=== PATIENT | female | born 1980 | race Caucasian/White ===

== ENCOUNTER 2017-04-08 21:43 | Outpatient (CLI) | payer MEDICAID ==
[2017-04-08 22:12] LABS: APPEARANCE,URINE CLEAR; BILIRUBIN,URINE NEGATIVE (NEGATIVE); GLUCOSE, URINE NEGATIVE (NEGATIVE); KETONES,URINE NEGATIVE (NEGATIVE); LEUKOCYTE ESTERASE,URINE SMALL (NEGATIVE); NITRITE,URINE NEGATIVE (NEGATIVE); PROTEIN,URINE NEGATIVE (NEGATIVE); URINE SPECIFIC GRAVITY 1.004; UROBILINOGEN,URINE NEGATIVE mg/dL (<2.0)
[2017-04-08 22:25] LABS: URINE BARBITURATES SCREEN NEGATIVE; URINE METHADONE SCREEN NEGATIVE; URINE OPIATES LOW NEGATIVE; URINE PHENCYCLIDINE SCREEN NEGATIVE
[2017-04-08 22:27] LABS: AMNISURE (ROM) NEGATIVE (NEGATIVE)
--- NOTE | 2017-04-08 22:46 | Non Stress Test Report ---
Non Stress Test Datetime Report Generated by CPN: 04/08/2017 22:46 DEMOGRAPHIC Test Number: 1 EGA NST: 34.4 INDICATION Indication for Study: Other Indication for Study (NST) Other: labor check MONITORING Monitor Explained: Monitor Explained; Test Explained; Patient Verbalized Understanding Time on Monitor: 04/08/2017 21:58 Time off Monitor: 04/08/2017 22:44 NST Duration: 46 NST INTERVENTIONS NST Interventions: PO Hydration; Reposition Patient Physician Notified NST: Dr Merchant BABY A: [id number] BABY A Movement : Present Contraction Frequency : none FHR Baseline : 120 Accelerations : Prolonged Decelerations : None Variability : Moderate 6-25bpm NST Review: Meets Criteria for Reactive NST NST Review and Verified By : Saravanan Valencia RN NST Results: Reactive NST REPORT Report Trigger: Send Report
== END 2017-04-08 22:57 | disposition home or self-care (01) ==
LOC: LC 21:43
PROVIDERS: ATTEND Obstetrics & Gynecology
PROC: 4A1HXCZ Monitoring of Products of Conception, Cardiac Rate, External Approach (ICD-10-PCS; principal; 2017-04-08)
DX: O09.523 Supervision of elderly multigravida, third trimester (principal); Z3A.34 34 weeks gestation of pregnancy
CPT/HCPCS: 80307; 81001; 84112

== ENCOUNTER 2017-04-11 10:44 | Outpatient (CLI) | payer MEDICAID ==
--- NOTE | 2017-04-11 13:30 | Non Stress Test Report ---
Non Stress Test Datetime Report Generated by CPN: 04/11/2017 13:29 DEMOGRAPHIC EGA NST: 35.0 INDICATION Indication for Study: Ordered by Provider Indication for Study (NST) Other: Nonreactive NST in office VITAL SIGNS Temperature - NST: 98.3 Pulse - NST: 88 RESP - NST: 16 NBPSYS NST: 127 NBPDIA NST: 76 MONITORING Monitor Explained: Monitor Explained; Test Explained; Patient Verbalized Understanding Time on Monitor: 04/11/2017 10:44 Time off Monitor: 04/11/2017 11:24 NST Duration: 40 NST INTERVENTIONS NST Interventions: PO Hydration; Reposition Patient Physician Notified NST: Dr. Huffman BABY A: [id number] BABY A Movement : Present Contraction Frequency : irr FHR Baseline : 135 Accelerations : 15X15 Decelerations : None Variability : Moderate 6-25bpm NST Review: Meets Criteria for Reactive NST NST Review and Verified By : Sai Taylor RNC NST Results: Reactive NST REPORT Report Trigger: Send Report
== END 2017-04-11 12:00 | disposition home or self-care (01) ==
LOC: LC 10:44
PROVIDERS: ATTEND Obstetrics & Gynecology
PROC: 4A1HXCZ Monitoring of Products of Conception, Cardiac Rate, External Approach (ICD-10-PCS; principal; 2017-04-11)
DX: O47.03 False labor before 37 completed weeks of gestation, third trimester (principal); O09.523 Supervision of elderly multigravida, third trimester; Z3A.35 35 weeks gestation of pregnancy
CPT/HCPCS: 59025

== ENCOUNTER 2017-04-19 22:39 | Outpatient (CLI) | payer MEDICAID ==
[2017-04-19 23:12] LABS: APPEARANCE,URINE SLIGHTLY-CLOUDY; BILIRUBIN,URINE NEGATIVE (NEGATIVE); GLUCOSE, URINE 50 mg/dL (NEGATIVE); KETONES,URINE NEGATIVE (NEGATIVE); LEUKOCYTE ESTERASE,URINE TRACE (NEGATIVE); NITRITE,URINE NEGATIVE (NEGATIVE); PROTEIN,URINE NEGATIVE (NEGATIVE); URINE SPECIFIC GRAVITY 1.012; UROBILINOGEN,URINE NEGATIVE mg/dL (<2.0)
[2017-04-19 23:25] LABS: URINE BARBITURATES SCREEN NEGATIVE; URINE METHADONE SCREEN NEGATIVE; URINE OPIATES LOW NEGATIVE; URINE PHENCYCLIDINE SCREEN NEGATIVE
[2017-04-19] MEDS ORDERED: HYDROXYZINE PAMOATE 50 MG CAPSULE PO ONE (23:25)
== END 2017-04-19 23:43 | disposition home or self-care (01) ==
LOC: LC 22:39
PROVIDERS: ATTEND Obstetrics & Gynecology
PROC: 4A1HXCZ Monitoring of Products of Conception, Cardiac Rate, External Approach (ICD-10-PCS; principal; 2017-04-19)
DX: O47.03 False labor before 37 completed weeks of gestation, third trimester (principal); O09.523 Supervision of elderly multigravida, third trimester; Z3A.36 36 weeks gestation of pregnancy
CPT/HCPCS: 59025; 80307; 81001

== ENCOUNTER 2017-04-23 10:26 | Outpatient (CLI) | payer MEDICAID ==
--- NOTE | 2017-04-23 10:28 | Non Stress Test Report ---
Non Stress Test Datetime Report Generated by CPN: 04/23/2017 10:28 DEMOGRAPHIC Test Number: 1 EGA NST: 36.5 EGA NST: 36.1 INDICATION Indication for Study: Ordered by Provider Indication for Study (NST) Other: Labor check MONITORING Monitor Explained: Monitor Explained; Test Explained; Patient Verbalized Understanding Time on Monitor: 04/23/2017 10:27 Time on Monitor: 04/19/2017 22:55 Time off Monitor: 04/19/2017 23:34 NST Duration: 39 NST INTERVENTIONS NST Interventions: PO Hydration Physician Notified NST: Patricio BABY A: [id number] BABY A Movement : Present Contraction Frequency : 8-10 FHR Baseline : 125 Accelerations : 15X15 Decelerations : None Variability : Moderate 6-25bpm NST Review: Meets Criteria for Reactive NST NST Review and Verified By : TIA OSORIO Results: Reactive NST REPORT Report Trigger: Send Report
[2017-04-23] MEDS ORDERED: DIPH/PERTUSS(ACELL)/TETANUS VAC/PF 0.5 ML SYR (>=10YO) IM PRN (11:24)
[2017-04-23] MEDS ORDERED: ACETAMINOPHEN 325 MG TABLET PO PRN (11:24)
[2017-04-23] MEDS ORDERED: MEASLES,MUMPS&RUBELLA VACC/PF 0.5 ML VIAL SUBCUT PRN (11:24)
[2017-04-23] MEDS ORDERED: SIMETHICONE 80 MG TAB.CHEW PO PRN (11:24)
[2017-04-23] MEDS ORDERED: OXYCODONE-ACETAMINOPHEN 5-325 MG TABLET PO PRN ×2 (11:24)
[2017-04-23] MEDS ORDERED: OXYTOCIN/NORMAL SALINE 1,000 ML IV PRN (11:24)
[2017-04-23] MEDS ORDERED: PROMETHAZINE HCL INJ 25 MG/1 ML VIAL IV PRN (11:24)
[2017-04-23] MEDS ORDERED: HYDROMORPHONE HCL INJ/PF 2 MG/ML AMPULE IV PRN (11:26)
[2017-04-23] MEDS ORDERED: DOCUSATE SODIUM 100 MG CAPSULE PO SCH (18:00)
[2017-04-24] MEDS ORDERED: PRENATAL VITAMIN W-O CA NO5/FE FUMARATE/FA CAPSULE PO SCH (10:00)
== END 2017-04-23 10:40 | disposition home or self-care (01) ==
LOC: LC 10:26
PROVIDERS: ATTEND Obstetrics & Gynecology
PROC: 4A1HXCZ Monitoring of Products of Conception, Cardiac Rate, External Approach (ICD-10-PCS; principal; 2017-04-23)
DX: O47.03 False labor before 37 completed weeks of gestation, third trimester (principal); O09.523 Supervision of elderly multigravida, third trimester; Z3A.36 36 weeks gestation of pregnancy
CPT/HCPCS: 59025

== ENCOUNTER 2017-04-29 19:39 | Outpatient (CLI) | payer MEDICAID ==
[2017-04-29 20:24] LABS: APPEARANCE,URINE CLEAR; BILIRUBIN,URINE NEGATIVE (NEGATIVE); GLUCOSE, URINE NEGATIVE (NEGATIVE); KETONES,URINE NEGATIVE (NEGATIVE); LEUKOCYTE ESTERASE,URINE NEGATIVE (NEGATIVE); NITRITE,URINE NEGATIVE (NEGATIVE); PROTEIN,URINE NEGATIVE (NEGATIVE); URINE SPECIFIC GRAVITY 1.005; UROBILINOGEN,URINE NEGATIVE mg/dL (<2.0)
[2017-04-29 20:40] LABS: URINE BARBITURATES SCREEN NEGATIVE; URINE METHADONE SCREEN NEGATIVE; URINE OPIATES LOW NEGATIVE; URINE PHENCYCLIDINE SCREEN NEGATIVE
--- NOTE | 2017-04-29 21:34 | Non Stress Test Report ---
Non Stress Test Datetime Report Generated by CPN: 04/29/2017 21:34 DEMOGRAPHIC EGA NST: 37.4 INDICATION Indication for Study: Ordered by Provider MONITORING Monitor Explained: Monitor Explained Time on Monitor: 04/29/2017 19:57 Time off Monitor: 04/29/2017 21:09 NST Duration: 72 NST INTERVENTIONS NST Interventions: None BABY A: [id number] BABY A Contraction Frequency : 5-7 FHR Baseline : 135 Accelerations : 15X15 Decelerations : None Variability : Moderate 6-25bpm NST Review and Verified By : R García, RNC NST Results: Reactive NST REPORT Report Trigger: Send Report
== END 2017-04-29 21:22 | disposition admitted as inpatient to this hospital (09) ==
LOC: LC 19:39
PROVIDERS: ATTEND Obstetrics & Gynecology
PROC: 4A1HXCZ Monitoring of Products of Conception, Cardiac Rate, External Approach (ICD-10-PCS; principal; 2017-04-29)
DX: O47.1 False labor at or after 37 completed weeks of gestation (principal); O09.523 Supervision of elderly multigravida, third trimester; Z3A.37 37 weeks gestation of pregnancy
CPT/HCPCS: 59025; 81005; 80307; Q0114

== ENCOUNTER 2017-05-05 21:01 | Outpatient (CLI) | payer MEDICAID ==
[2017-05-05 21:55] LABS: APPEARANCE,URINE CLEAR; BILIRUBIN,URINE NEGATIVE (NEGATIVE); GLUCOSE, URINE NEGATIVE (NEGATIVE); KETONES,URINE NEGATIVE (NEGATIVE); LEUKOCYTE ESTERASE,URINE SMALL (NEGATIVE); NITRITE,URINE NEGATIVE (NEGATIVE); PROTEIN,URINE NEGATIVE (NEGATIVE); URINE SPECIFIC GRAVITY 1.005; UROBILINOGEN,URINE NEGATIVE mg/dL (<2.0)
[2017-05-05 22:00] LABS: AMNISURE (ROM) NEGATIVE (NEGATIVE)
--- NOTE | 2017-05-05 22:10 | Non Stress Test Report ---
Non Stress Test Datetime Report Generated by CPN: 05/05/2017 22:10 DEMOGRAPHIC Test Number: 1 EGA NST: 38.3 INDICATION Indication for Study: Ordered by Provider Indication for Study (NST) Other: LC MONITORING Monitor Explained: Monitor Explained; Test Explained; Patient Verbalized Understanding Time on Monitor: 05/05/2017 21:20 Time off Monitor: 05/05/2017 22:03 NST Duration: 43 NST INTERVENTIONS NST Interventions: PO Hydration Physician Notified NST: Handy BABY A: [id number] BABY A Movement : Present Contraction Frequency : 3-5 FHR Baseline : 150 Accelerations : 15X15 Decelerations : None Variability : Moderate 6-25bpm NST Review: Meets Criteria for Reactive NST NST Review and Verified By : Saravanan Valencia RN NST Results: Reactive NST REPORT Report Trigger: Send Report
[2017-05-05 22:17] LABS: URINE BARBITURATES SCREEN NEGATIVE; URINE METHADONE SCREEN NEGATIVE; URINE OPIATES LOW NEGATIVE; URINE PHENCYCLIDINE SCREEN NEGATIVE
== END 2017-05-05 22:23 | disposition home or self-care (01) ==
LOC: LC 21:01
PROVIDERS: ATTEND Student in an Organized Health Care Education/Training Program
PROC: 4A1HXCZ Monitoring of Products of Conception, Cardiac Rate, External Approach (ICD-10-PCS; principal; 2017-05-05)
DX: O47.1 False labor at or after 37 completed weeks of gestation (principal); O09.523 Supervision of elderly multigravida, third trimester; Z3A.38 38 weeks gestation of pregnancy
CPT/HCPCS: 59025; 80307; 81005; 84112

== ENCOUNTER 2017-05-07 22:18 | Outpatient (CLI) | payer MEDICAID ==
[2017-05-07 22:58] LABS: APPEARANCE,URINE SLIGHTLY-CLOUDY; BILIRUBIN,URINE NEGATIVE (NEGATIVE); GLUCOSE, URINE NEGATIVE (NEGATIVE); KETONES,URINE NEGATIVE (NEGATIVE); LEUKOCYTE ESTERASE,URINE LARGE (NEGATIVE); NITRITE,URINE NEGATIVE (NEGATIVE); PROTEIN,URINE NEGATIVE (NEGATIVE); URINE SPECIFIC GRAVITY 1.013; UROBILINOGEN,URINE NEGATIVE mg/dL (<2.0)
[2017-05-07 23:04] LABS: AMNISURE (ROM) NEGATIVE (NEGATIVE)
[2017-05-07 23:14] LABS: URINE BARBITURATES SCREEN NEGATIVE; URINE METHADONE SCREEN NEGATIVE; URINE OPIATES LOW NEGATIVE; URINE PHENCYCLIDINE SCREEN NEGATIVE
--- NOTE | 2017-05-07 23:48 | Non Stress Test Report ---
Non Stress Test Datetime Report Generated by CPN: 05/07/2017 23:47 DEMOGRAPHIC EGA NST: 38.5 INDICATION Indication for Study: Ordered by Provider; Other Indication for Study (NST) Other: LC URINE RESULTS Urine Protein, NST: Negative Urine Ketones - NST: Negative Urine Glucose - NST: Negative Urine Blood - NST: Negative MONITORING Monitor Explained: Monitor Explained; Test Explained; Patient Verbalized Understanding Time on Monitor: 05/07/2017 22:44 Time off Monitor: 05/07/2017 23:24 NST Duration: 40 NST INTERVENTIONS NST Interventions: PO Hydration; Reposition Patient Physician Notified NST: Dr Neilsen BABY A: [id number] BABY A Contraction Frequency : 8 FHR Baseline : 150 Accelerations : 15X15 Decelerations : None Variability : Moderate 6-25bpm NST Review: Meets Criteria for Reactive NST NST Review and Verified By : Scooby Koehler, RNC NST Results: Reactive NST REPORT Report Trigger: Send Report
== END 2017-05-07 23:28 | disposition home or self-care (01) ==
LOC: LC 22:18
PROVIDERS: ATTEND Specialist
PROC: 4A1HXCZ Monitoring of Products of Conception, Cardiac Rate, External Approach (ICD-10-PCS; principal; 2017-05-07)
DX: O47.1 False labor at or after 37 completed weeks of gestation (principal); Z3A.38 38 weeks gestation of pregnancy
CPT/HCPCS: 59025; 80307; 81005; 84112

== ENCOUNTER 2017-05-09 07:49 | Inpatient (IN) | payer MEDICAID ==
[2017-05-09 08:20] LABS: APPEARANCE,URINE CLEAR; BILIRUBIN,URINE NEGATIVE (NEGATIVE); GLUCOSE, URINE NEGATIVE (NEGATIVE); KETONES,URINE NEGATIVE (NEGATIVE); LEUKOCYTE ESTERASE,URINE TRACE (NEGATIVE); NITRITE,URINE NEGATIVE (NEGATIVE); PROTEIN,URINE NEGATIVE (NEGATIVE); URINE SPECIFIC GRAVITY 1.006; UROBILINOGEN,URINE NEGATIVE mg/dL (<2.0)
[2017-05-09 08:43] LABS: URINE BARBITURATES SCREEN NEGATIVE; URINE METHADONE SCREEN NEGATIVE; URINE OPIATES LOW NEGATIVE; URINE PHENCYCLIDINE SCREEN NEGATIVE
[2017-05-09] MEDS ORDERED: MISOPROSTOL 0.2 MG TABLET ONE (11:53)
[2017-05-09] MEDS ORDERED: CEFAZOLIN 2 GM/D5W RTU 2 GM/50 ML RTUPB IV ONE ×2 (11:53→19:57)
[2017-05-09] MEDS ORDERED: LIDOCAINE 1% INJ-PF (10 MG/ML) 30 ML SDV ONE (11:53)
[2017-05-09] MEDS ORDERED: OXYTOCIN/NORMAL SALINE 20 UNIT/1,000 ML RTUINJ ONE (11:53)
[2017-05-09 13:28] LABS: ABSOLUTE EOSINOPHILS # (AUTO) 0.1 10^3/uL (0.0-0.6); ABSOLUTE LYMPHOCYTES (AUTO) 1.6 10^3/uL (0.5-4.7); ABSOLUTE MONOCYTES (AUTO) 1.1 10^3/uL (0.1-1.4); ABSOLUTE NEUT (AUTO) 9.8 10^3/uL (1.7-8.2); BASOPHILS % (AUTO) 0.4 % (0-2); EOSINOPHILS % (AUTO) 0.6 % (0-6); HEMATOCRIT 36.2 % (36.0-47.0); HEMOGLOBIN 11.3 g/dL (12.0-15.5); HGB HCT DIFFERENCE -2.3; LYMPHOCYTES % (AUTO) 12.8 % (13-45); MEAN CORPUSCULAR HEMOGLOBIN 25.2 pg (27.0-33.4); MEAN CORPUSCULAR HGB CONC 31.3 g/dL (32.0-36.0); MEAN CORPUSCULAR VOLUME 80 fl (80-97); RED CELL DISTRIBUTION WIDTH 17.7 % (11.5-14.0); SEGMENTED NEUTROPHILS % (AUTO) 77.2 % (42-78); WHITE BLOOD COUNT 12.7 10^3/uL (4.0-10.5)
[2017-05-09] MEDS ORDERED: CEFAZOLIN 2 GM/D5W RTU 2 GM/50 ML RTUPB IV SCH (18:00)
--- NOTE | 2017-05-09 20:33 | L&D Progress Notes ---
PROGRESS NOTES Datetime Report Generated by CPN: 05/09/2017 20:33 PROGRESS NOTE Impression Other: protracted latent labor Procedures: Artificial ROM Comment: cont gbs prophylaxis, consider pit augmentation if does not make cervical change with arom VAGINAL EXAM Dilatation: 4 Effacement: 80 Station: -1 MEMBRANES Amniotic Fluid Color: Clear FETUS A FHR Category: Category I : 39.0 Presentation: Vertex SIGNATURE SIGNATURE: [id number] SIGNATURE: [id number] SIGNATURE: [id number] SIGNATURE: [id number] SIGNATURE: [id number] SIGNATURE: [id number] SIGNATURE: [id number] Signature: with User ID: [email or web address]
[2017-05-09] MEDS ORDERED: ACETAMINOPHEN 325 MG TABLET ONE (21:16)
[2017-05-09] MEDS ORDERED: DIBUCAINE 1% OINTMENT 28 GM TP PRN (22:10)
[2017-05-09] MEDS ORDERED: BENZOCAINE/MENTHOL AEROSOL SPRAY 56 ML TOP PRN (22:10)
[2017-05-09] MEDS ORDERED: OXYTOCIN/NORMAL SALINE 1,000 ML IV PRN (22:10)
[2017-05-09] MEDS ORDERED: ACETAMINOPHEN WITH CODEINE #3 TABLET PO PRN ×2 (22:10)
[2017-05-09] MEDS ORDERED: DIPH/PERTUSS(ACELL)/TETANUS VAC/PF 0.5 ML SYR (>=10YO) IM PRN (22:10)
[2017-05-09] MEDS ORDERED: MEASLES,MUMPS&RUBELLA VACC/PF 0.5 ML VIAL SUBCUT PRN (22:10)
[2017-05-09] MEDS ORDERED: ZOLPIDEM TARTRATE 5 MG TABLET PO PRN (22:10)
[2017-05-09] MEDS ORDERED: PROMETHAZINE HCL 25 MG TABLET PO PRN (23:46)
[2017-05-09] MEDS ORDERED: ACETAMINOPHEN 650 MG SUPP.RECT PR PRN (23:46)
[2017-05-09] MEDS ORDERED: DIPHENHYDRAMINE HCL 25 MG CAPSULE PO PRN (23:46)
[2017-05-09] MEDS ORDERED: PSEUDOEPHEDRINE HCL 30 MG TABLET PO PRN (23:46)
[2017-05-09] MEDS ORDERED: GLYCERIN/WITCH HAZEL LEAF 1 EACH MED..PAD TP PRN (23:46)
[2017-05-09] MEDS ORDERED: NA PHOS,M-B/NA PHOS,DI-BA (ADULT) 133 ML ENEMA PR PRN (23:46)
[2017-05-09] MEDS ORDERED: PROMETHAZINE HCL INJ 25 MG/1 ML VIAL IV PRN (23:46)
[2017-05-09] MEDS ORDERED: MAGNESIUM HYDROXIDE SUSP 30 ML UDCUP PO PRN (23:46)
[2017-05-09] MEDS ORDERED: PROMETHAZINE HCL 25 MG SUPP.RECT PR PRN (23:46)
--- NOTE | 2017-05-10 01:18 | Admission Physical ---
Datetime Report Generated by CPN: 05/10/2017 01:18 CURRENT ADMISSION Chief Complaint: Uterine Contractions Admit Plan: Admit to Unit; Initiate Labor Protocol ALLERGIES Medication Allergies: Yes Medication Allergies: Penicillins/MO/Hives (05/09/2017); amoxicillin/MO/Hives (05/09/2017) Medication Allergies: Penicillins/MO/Hives (05/07/2017); amoxicillin/MO/Hives (05/07/2017) Medication Allergies: Penicillins/MO/Hives (05/05/2017); amoxicillin/MO/Hives (05/05/2017) Medication Allergies: Penicillins/MO/Hives (04/29/2017); amoxicillin/MO/Hives (04/29/2017) Medication Allergies: Penicillins/MO/Hives (04/23/2017); amoxicillin/MO/Hives (04/23/2017) Medication Allergies: Penicillins/MO/Hives (07/07/2013); amoxicillin/MO/Hives (07/07/2013) Medication Allergies: Penicillins/MO/Hives (07/07/2013); amoxicillin/MO/Hives (07/07/2013) almonds, black pepper, shellfish. Latex: No Latex Allergies Food Allergies: black pepper almonds shellfish Environmental Allergies: none OBSTETRICAL HISTORY EDC: 05/16/2017 00:00 : 9 Para: 2 Term: 1 : 1 Livin Gestational Diabetes: No Rh Sensitization: No Incompetent Cervix: No NIRANJAN: No Infertility: No ART Treatment: No Uterine Anomaly: No IUGR: No Hx Previous C/S: No Macrosomia: No Hx Loss/Stillborn: No PIH: No Hx : No Placenta Previa/Abruption: No Depression/PP Depression: No PTL/PROM: No Post Hemorrhage: No Current Procedures: Ultrasound; NST Obstetrical History Comments: 1st 2007- 40wks vaginal 2 amniotic sacs 2nd preg 2006- ectopic at 5 wks 3rd preg 2012- SAB 8-9 wks 4th preg 2012- SAB 7-9 wks 5th preg 2012- SAB 8wks 6th preg 2013- SAB 8-9 wks 7th preg 2013- SAB 8-9 wks 8th preg 2015- vaginal delivery at 36wks post hemorrage 9th preg 2017- current SEE RECORDS Alcohol: No Marijuana : No Cocaine: No Other Illicit Drugs: No Cigarettes: Never Smoker. [id number] MEDICAL HISTORY Diabetes: No Blood Transfusion: No Pulmonary Disease (Asthma, TB): No Breast Disease: No Hypertension: No [place] Surgery: No Heart Disease: No Hosp/Surgery: No Autoimmune Disorder: No Anesthetic Complications: No Kidney Disease: No Abnormal Pap Smear: No Neuro/Epilepsy: No Psychiatric Disorders: No Other Medical Diseases: No Hepatitis/Liver Disease: No Significant Family History: No Varicosities/Phlebitis: No Trauma/Violence : No Thyroid Dysfunction: No INFECTIOUS HISTORY Gonorrhea: No Genital Herpes: No Chlamydia: No Tuberculosis: No Syphilis: No Hepatitis: No HIV/AIDS Exposure: No Rash or Viral Illness: No HPV: No PHYSICAL EXAM General: Normal HEENT: Normal Neurologic: Normal Thyroid: Normal Heart: Normal Lungs: Normal Breast: Normal Back: Normal Abdomen: Normal Genitourinary Exam: Normal Extremities: Normal DTRs: Normal Pelvic Type: Adequate Vital Signs: Reviewed VAGINAL EXAM Dilatation: 4 Effacement: 80 Station: -1 MEMBRANES Amniotic Fluid Color: Clear FETUS A EGA: 39.0 Monitoring: External US Decelerations: None Presentation: Vertex Admit Comment: 37 yo presents with uncomfortable and increased contractions pt walked for 2 hours- small cervical change noted GBS positive with sensitivity to Penicillin- NKDA admitted for early labor EDC per LMP 05/16/17 EGA 39 weeks AMA multiple SABs Anemia RH negative retained placenta- history of PPH Positive GBS gbs prophylaxis with Ancef pain management prn anticipate PLANS FOR LABOR AND DELIVERY Labor and Delivery: None Pain Management: None; Natural Feeding Preference: Breast Benefit of Breast Feed Discussed: Yes Circumcision: N/A INFORMED CONSENT Assignment: Gabriella Brandt MD Signature: with User ID: Teresa : with User ID: Teresa
[2017-05-10] MEDS: IBUPROFEN 800 MG TABLET PO SCH ×3 (05:41→22:00)
[2017-05-10 07:44] LABS: HEMATOCRIT 33.9 % (36.0-47.0); HEMOGLOBIN 10.9 g/dL (12.0-15.5); HGB HCT DIFFERENCE -1.2; MEAN CORPUSCULAR HEMOGLOBIN 25.4 pg (27.0-33.4); MEAN CORPUSCULAR HGB CONC 32.2 g/dL (32.0-36.0); MEAN CORPUSCULAR VOLUME 79 fl (80-97); RED BLOOD COUNT 4.29 10^6/uL (3.72-5.28); RED CELL DISTRIBUTION WIDTH 17.5 % (11.5-14.0); WHITE BLOOD COUNT 17.3 10^3/uL (4.0-10.5)
--- NOTE | 2017-05-10 10:20 | PDOC PROGRESS REPORT ---
Subjective-OB Subjective: Post Delivery Day: 37 year old. Denies any needs at this time Doing well, OOB in halls, voiding, eating well, family at BS, breast feeding Physical Exam (OB) Vital Signs: Temp Pulse Resp BP Pulse Ox 98.6 F 83 16 125/75 100 05/10/17 08:30 05/10/17 08:30 05/10/17 08:30 05/10/17 08:30 05/10/17 08:30 Intake & Output 05/09/17 05/10/17 05/11/17 06:59 06:59 06:59 Weight 90.95 kg - Lochia Lochia Amount: Small 10-25 ml Lochia Color: Rubra/Red - Abdomen Description: Soft Hernia Present: No Fundal Description: Firm, Midline Fundal Height: u/u - u/2 Objective-Diagnostic Laboratory: 05/10/17 07:19 05/09/17 05/09/17 05/10/17 13:03 13:03 07:19 WBC 12.7 H 17.3 H RBC 4.50 4.29 Hgb 11.3 L 10.9 L Hct 36.2 33.9 L MCV 80 79 L MCH 25.2 L 25.4 L MCHC 31.3 L 32.2 RDW 17.7 H 17.5 H Plt Count 228 239 Seg Neutrophils % 77.2 Lymphocytes % 12.8 L Monocytes % 9.0 Eosinophils % 0.6 Basophils % 0.4 Absolute Neutrophils 9.8 H Absolute Lymphocytes 1.6 Absolute Monocytes 1.1 Absolute Eosinophils 0.1 Absolute Basophils 0.0 Blood Type A POSITIVE Antibody Screen NEGATIVE Assessment and Plan(PN) - Assessment and Plan (1) Qualifiers: Weeks of gestation: 40 weeks Qualified Code(s): Z3A.40 - 40 weeks gestation of Is this a current diagnosis for this admission?: Yes (2) Vaginal delivery Is this a current diagnosis for this admission?: Yes - Time Spent with Patient Time with patient: Less than 15 minutes Medications reviewed and adjusted accordingly: Yes - Disposition Anticipated Discharge: Home Within: within 24 hours
[2017-05-10] MEDS: DOCUSATE SODIUM 100 MG CAPSULE PO SCH ×2 (10:40→17:29)
[2017-05-10] MEDS: PRENATAL VITAMIN W-O CA NO5/FE FUMARATE/FA CAPSULE PO SCH (10:42)
[2017-05-10] MEDS: FERROUS SULFATE 325 MG TABLET PO SCH ×2 (10:42→17:29)
[2017-05-10] MEDS: SENNOSIDES/DOCUSATE 8.6-50 MG 1 EACH TABLET PO SCH (10:43)
[2017-05-10] MEDS: FAMOTIDINE 20 MG TABLET PO SCH ×2 (10:44→22:00)
[2017-05-10 11:20] LABS: HEMATOCRIT 35.7 % (36.0-47.0); HEMOGLOBIN 11.4 g/dL (12.0-15.5); HGB HCT DIFFERENCE -1.5; MEAN CORPUSCULAR HEMOGLOBIN 25.3 pg (27.0-33.4); MEAN CORPUSCULAR HGB CONC 31.9 g/dL (32.0-36.0); MEAN CORPUSCULAR VOLUME 80 fl (80-97); RED BLOOD COUNT 4.49 10^6/uL (3.72-5.28); RED CELL DISTRIBUTION WIDTH 17.3 % (11.5-14.0); WHITE BLOOD COUNT 16.9 10^3/uL (4.0-10.5)
[2017-05-10 21:08] VITALS: BP 126/77
[2017-05-11] MEDS: IBUPROFEN 800 MG TABLET PO SCH (05:32)
--- NOTE | 2017-05-11 09:49 | PDOC PROGRESS REPORT ---
Subjective-OB Subjective: Post Delivery Day: 37 year old. Denies any needs at this time Doing well, ready to go home, voiding, walking in halls, epigastric soreness, Physical Exam (OB) Vital Signs: Temp Pulse Resp BP Pulse Ox 98.8 F 81 16 126/77 H 99 05/10/17 20:26 05/10/17 20:26 05/10/17 20:26 05/10/17 20:26 05/10/17 20:26 Intake & Output 05/10/17 05/11/17 05/12/17 06:59 06:59 06:59 Intake Total 425 Balance 425 Weight 90.95 kg - Lochia Lochia Amount: Scant < 10 ml Lochia Color: Rubra/Red - Abdomen Description: Tender, Soft, Round Hernia Present: No Fundal Description: Firm, Midline Fundal Height: u/u - u/2 Objective-Diagnostic Laboratory: 05/10/17 11:00 05/10/17 11:00 WBC 16.9 H RBC 4.49 Hgb 11.4 L Hct 35.7 L MCV 80 MCH 25.3 L MCHC 31.9 L RDW 17.3 H Plt Count 239 Assessment and Plan(PN) - Assessment and Plan (1) Qualifiers: Weeks of gestation: 39 weeks Qualified Code(s): Z3A.39 - 39 weeks gestation of Is this a current diagnosis for this admission?: Yes (2) Vaginal delivery Is this a current diagnosis for this admission?: Yes - Time Spent with Patient Time with patient: Less than 15 minutes Medications reviewed and adjusted accordingly: Yes - Disposition Anticipated Discharge: Home Within: Other - home today
--- NOTE | 2017-05-11 09:53 | PDOC DISCHARGE SUMMARY ---
Final Diagnosis Discharge Date: 05/11/17 - Final Diagnosis (1) Is this a current diagnosis for this admission?: Yes (2) Vaginal delivery Is this a current diagnosis for this admission?: Yes Discharge Data - Discharge Medication Home Medications: Zya067/Iron Fumarate/FA/Dss [ 19 Tablet] 1 tab PO DAILY 12/08/14 Ferrous Sulfate [Feosol 325 mg Tablet] 325 mg PO BID #30 tablet 01/24/15 Ergocalciferol (Vitamin D2) [Vitamin D] 400 unit PO DAILY 05/05/17 Folic Acid [Folvite 1 mg Tablet] 1 mg PO DAILY 05/05/17 Ibuprofen [Motrin 800 mg Tablet] 800 mg PO Q8 #60 tablet 05/11/17 Gestational Age: 39 Reason(s) for Admission: Onset of Labor, Group B Strep Positive Admission Note: AROM Procedures: Ultrasound Intrapartum Procedure(s): Spontaneous Vaginal Delivery - [place] Data Baby 1 Female at 1 minute: 9 at 5 minutes: 9 Weight: 3.969 kg Home with Mother: Yes Complications: No - Diagnosis Test Laboratory: Temp Pulse Resp BP Pulse Ox 98.8 F 81 16 126/77 H 99 05/10/17 20:26 05/10/17 20:26 05/10/17 20:26 05/10/17 20:26 05/10/17 20:26 05/09/17 05/09/17 05/10/17 08:00 13:03 07:19 RBC 4.50 4.29 Hgb 11.3 L 10.9 L Hct 36.2 33.9 L Urine Opiates Screen NEGATIVE 05/10/17 11:00 RBC 4.49 Hgb 11.4 L Hct 35.7 L Urine Opiates Screen - Discharge information/Instructions Discharge Activity: Activity As Tolerated, No Lifting Over 10 Pounds, No Lifting /Push/Pulling, Pelvic Rest Discharge Diet: As Tolerated Disposition: HOME, SELF-CARE Follow up with: [facility] in: 4, Weeks
[2017-05-11] MEDS: DOCUSATE SODIUM 100 MG CAPSULE PO SCH (10:09)
[2017-05-11] MEDS: FERROUS SULFATE 325 MG TABLET PO SCH (10:09)
[2017-05-11] MEDS: PRENATAL VITAMIN W-O CA NO5/FE FUMARATE/FA CAPSULE PO SCH (10:09)
[2017-05-11] MEDS: SENNOSIDES/DOCUSATE 8.6-50 MG 1 EACH TABLET PO SCH (10:09)
[2017-05-11] MEDS: FAMOTIDINE 20 MG TABLET PO SCH (10:11)
--- NOTE | 2017-05-12 15:22 | Delivery Summary ---
Del Sum A-C Datetime Report Generated by CPN: 05/12/2017 15:22 DELIVERY PERSONNEL DELIVERY PERSONNEL: [phone];[id number];[id number] DELIVERY PERSONNEL: [id number];[id number] DELIVERY PERSONNEL: [phone] DELIVERY PERSONNEL: [id number] DELIVERY PERSONNEL: [phone] DELIVERY PERSONNEL: [phone] DELIVERY PERSONNEL: [id number] DELIVERY PERSONNEL: [phone] Delivery Doctor:: Gabriella Brandt MD Labor and Delivery Nurse:: Natalia Barrios RNrubber curer Nurse:: Reanna Ruiz RN Nursery Nurse:: Gabriella Dee RN Forestry And Wildlife Manager/PUBLIC RELATIONS COUNSELOR: Shweta Antonio, ST MATERNAL INFORMATION Delivery Anesthesia: None Medications After Delivery: Pitocin Bolus-Please Comment; Pitocin Drip 20 Units/1000ml NSS Estimated Blood Loss (ml): 250 Maternal Complications: None Provider Comments: Pt progressed to over intact perineum of female infant with apgars of 9 and 9. Head deliverd OA. Shoulders and body delivered easily thereafter. 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 Cord clamped and cut. Placenta spont and intact. Mom and baby doing well. LABOR SUMMARY EDC: 05/16/2017 00:00 No. Babies in Womb: 1 Attempted: No Labor Anesthesia: None LABOR INFORMATION Reason for Induction: Not Applicable Onset of Labor: 05/09/2017 20:59 Complete Dilatation: 05/09/2017 21:36 Group B Beta Strep: Positive Antibiotics # of Doses: 2 Antibiotics Time of Last Dose: 2035 Name of Antibiotic Given: ancef Steroids Given: None Reason Steroids Not Administered: Not Applicable MEMBRANES Membranes Rupture Method: Artificial Rupture of Membranes: 05/09/2017 20:22 Length of Rupture (hr): 1.52 Amniotic Fluid Color: Clear Amniotic Fluid Amount: Scant Amniotic Fluid Odor: None STAGES OF LABOR Stage 1 hr: 0 Stage 1 min: 37 Stage 2 hr: 0 Stage 2 min: 17 Stage 3 hr: 0 Stage 3 min: 4 Total Time in Labor hr: 0 Total Time in Labor min: 58 VAGINAL DELIVERY Episiotomy: None Laceration Type: None BABY A INFORMATION Delivery Date/Time: 05/09/2017 21:53 Method of Delivery: Vaginal Method of Delivery: Vaginal Method of Delivery: Vaginal Born in Route : No : N/A Forceps: N/A Vacuum Extraction: N/A Shoulder Dystocia : No PRESENTATION/POSITION BABY A Presentation: Cephalic Presentation: Cephalic Presentation: Unable to Assess Cephalic Presentation: Vertex Vertex Position: OA Breech Presentation: N/A PLACENTA INFORMATION BABY A Placenta Delivery Time : 05/09/2017 21:57 Placenta Method of Delivery: Spontaneous Placenta Method of Delivery: Spontaneous Placenta Status: Delivered SCORES BABY A Heart Rate 1 min: >100 bpm Resp Effort 1 min: Good Cry Reflex Irritability 1 min: Cough or Sneeze or Pulls Away Muscle Tone 1 min: Active Motion Color 1 min: Body Shallow Water, Extremities Blue SCORE 1 MIN: 9 Heart Rate 5 min: >100 bpm Resp Effort 5 min: Good Cry Reflex Irritability 5 min: Cough or Sneeze or Pulls Away Muscle Tone 5 min: Active Motion Color 5 min: Body Shallow Water, Extremities Blue SCORE 5 MIN: 9 INFORMATION BABY A Gestational Age at Delivery: 39.0 Gestational Status: Full Term- 39- 40.6 Weeks Outcome : Liveborn Infant Condition : Stable Infant Sex: Female Sex: Female IDENTIFICATION BABY A Infant Verification Date/Time: 05/09/2017 22:03 ID Band Number: [id number] Mother's Name Verified: Yes Infant RN Verifying Infant: B Denis, RN Additional Verifying Personnel: B Ring, RN WEIGHT/LENGTH BABY A Infant Birthweight (gm): 3960 Infant Birthweight (gm): 3960 Infant Weight (lb): 8 Infant Weight (oz): 12 Length (in): 19.50 Length (in): 19.50 Infant Length (cm): 49.53 CORD INFORMATION BABY A No. Cord Vessels: 3 Nuchal Cord : N/A Cord Blood Taken: Yes-For Storage (Mom's Blood type +) Infant Suction: Mouth; Nose ASSESSMENT BABY A Skin to Skin: Yes Skin to Skin Time (min): 40 Infant Care By: Francisco Luiz, RN SIGNATURES Signature: with User ID: [email or web address]
== END 2017-05-11 12:22 | disposition home or self-care (01) | DRG 775 ==
LOC: LC 07:49 → LR 11:33 → 2S 05-10 00:15
PROVIDERS: ADMIT Specialist; ATTEND Specialist
PROC: 10E0XZZ Delivery of Products of Conception, External Approach (ICD-10-PCS; principal; 2017-05-09)
PROC: 10907ZC Drainage of Amniotic Fluid, Therapeutic from Products of Conception, Via Natural or Artificial Opening (ICD-10-PCS; 2017-05-09)
PROC: 4A1HXCZ Monitoring of Products of Conception, Cardiac Rate, External Approach (ICD-10-PCS; 2017-05-09)
DX: O99.824 Streptococcus B carrier state complicating childbirth (principal); O63.0 Prolonged first stage (of labor); O99.02 Anemia complicating childbirth; D64.9 Anemia, unspecified; Z28.21 Immunization not carried out because of patient refusal; Z88.0 Allergy status to penicillin; Z91.018 Allergy to other foods; Z91.013 Allergy to seafood; Z3A.39 39 weeks gestation of pregnancy; Z37.0 Single live birth
CPT/HCPCS: 36415; 80307; 81005; 85025; 85027; 86592; 86850; 86900; 86901; 94760; J0690; J2590; J3490

== ENCOUNTER 2017-08-13 21:26 | Emergency (ER) | payer MEDICAID ==
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
[2017-08-14 02:27] LABS: ABSOLUTE BASOPHILS # (AUTO) 0.1 10^3/uL (0.0-0.2); ABSOLUTE EOSINOPHILS # (AUTO) 0.2 10^3/uL (0.0-0.6); ABSOLUTE LYMPHOCYTES (AUTO) 2.1 10^3/uL (0.5-4.7); ABSOLUTE MONOCYTES (AUTO) 0.8 10^3/uL (0.1-1.4); ABSOLUTE NEUT (AUTO) 4.4 10^3/uL (1.7-8.2); BASOPHILS % (AUTO) 0.7 % (0-2); EOSINOPHILS % (AUTO) 2.2 % (0-6); HEMATOCRIT 39.3 % (36.0-47.0); HEMOGLOBIN 13.4 g/dL (12.0-15.5); HGB HCT DIFFERENCE 0.9; LYMPHOCYTES % (AUTO) 27.6 % (13-45); MEAN CORPUSCULAR HEMOGLOBIN 27.8 pg (27.0-33.4); MEAN CORPUSCULAR VOLUME 82 fl (80-97); MONOCYTES % (AUTO) 10.6 % (3-13); RED CELL DISTRIBUTION WIDTH 14.7 % (11.5-14.0); SEGMENTED NEUTROPHILS % (AUTO) 58.9 % (42-78); WHITE BLOOD COUNT 7.5 10^3/uL (4.0-10.5)
[2017-08-14 02:37] LABS: ALANINE AMINOTRANSFERASE 24 U/L (9-52); ALBUMIN 4.1 g/dL (3.5-5.0); ALKALINE PHOSPHATASE 81 U/L (38-126); ANION GAP 8 (5-19); ASPARTATE AMINO TRANSFERASE 24 U/L (14-36); BILIRUBIN,DIRECT 0.3 mg/dL (0.0-0.4); BILIRUBIN,TOTAL 0.6 mg/dL (0.2-1.3); BLOOD UREA NITROGEN 14 mg/dL (7-20); CALCIUM 9.2 mg/dL (8.4-10.2); CARBON DIOXIDE 29 mmol/L (22-30); CHLORIDE 105 mmol/L (98-107); CREATININE RESULT 0.86 mg/dL (0.52-1.25); GLUCOSE 90 mg/dL (75-110); POTASSIUM 3.7 mmol/L (3.6-5.0); SODIUM 141.9 mmol/L (137-145); TOTAL PROTEIN 7.1 g/dL (6.3-8.2)
[2017-08-14 03:19] LABS: APPEARANCE,URINE CLEAR; BILIRUBIN,URINE NEGATIVE (NEGATIVE); GLUCOSE, URINE NEGATIVE (NEGATIVE); KETONES,URINE NEGATIVE (NEGATIVE); LEUKOCYTE ESTERASE,URINE NEGATIVE (NEGATIVE); NITRITE,URINE NEGATIVE (NEGATIVE); PROTEIN,URINE NEGATIVE (NEGATIVE); URINE SPECIFIC GRAVITY 1.003; UROBILINOGEN,URINE NEGATIVE mg/dL (<2.0)
[2017-08-14 04:01] VITALS: BP 96/68
--- NOTE | 2017-08-14 07:27 | EKG REPORT ---
SEVERITY:- NORMAL ECG - SINUS RHYTHM : Confirmed by: Bharathi Frances MD 14-Aug-2017 07:26:50
== END 2017-08-14 04:05 | disposition home or self-care (01) ==
LOC: ER 21:26
DX: R53.1 Weakness (principal); R42 Dizziness and giddiness
CPT/HCPCS: 36415; 80053; 81001; 81025; 85025; 93005; 93010; 99285

== ENCOUNTER 2017-10-09 09:36 | Emergency (ER) | payer MEDICAID ==
[2017-10-09 09:40] VITALS: BP 122/74
--- NOTE | 2017-10-09 11:03 | ER Document Report ---
ED ENT - General Chief Complaint: Sore Throat Stated Complaint: FEVER Time Seen by Provider: 10/09/17 11:01 Mode of Arrival: Ambulatory Information source: Patient TRAVEL OUTSIDE OF THE [place] IN LAST 30 DAYS: No - HPI Onset: This morning Onset/Duration: Gradual Severity: Moderate Pain Level: 4 Location of pain: Throat Associated symptoms: Sore throat Similar symptoms previously: Yes Recently seen / treated by doctor: No - Related Data Allergies/Adverse Reactions: amoxicillin [Amoxicillin] Allergy (Intermediate, Verified 10/09/17 09:41) Hives Penicillins Allergy (Intermediate, Verified 10/09/17 09:41) Hives black pepper Allergy (Unknown, Uncoded 05/09/17 08:04) nuts Allergy (Unknown, Uncoded 05/09/17 08:04) seafood Allergy (Unknown, Uncoded 05/09/17 08:04) sesame seeds Allergy (Unknown, Uncoded 05/09/17 08:04) Past Medical History - General Information source: Patient - Social History Smoking Status: Never Smoker Cigarette use (# per day): No Chew tobacco use (# tins/day): No Smoking Education Provided: No Frequency of alcohol use: None Drug Abuse: None Lives with: Family Family History: Arthritis, CAD, COPD, CVA, DM, Hyperlipidemia, Hypertension, Malignancy Patient has suicidal ideation: No Patient has homicidal ideation: No - Past Medical History Cardiac Medical History: Reports: None Pulmonary Medical History: Reports: None EENT Medical History: Reports: None Neurological Medical History: Reports: None Endocrine Medical History: Reports: None Renal/ Medical History: Reports: Hx Ectopic , Other - Retained placenta after baby Malignancy Medical History: Reports: None GI Medical History: Reports: Hx Gastroesophageal Reflux Disease Musculoskeltal Medical History: Reports None Skin Medical History: Reports None Psychiatric Medical History: Reports: None Traumatic Medical History: Reports: None Infectious Medical History: Reports: None Past Surgical History: Reports: Hx Gynecologic Surgery - surgery for ectopic , tube saved, Other - Retained placenta after childbirth was removed - Immunizations Hx Diphtheria, Pertussis, Tetanus Vaccination: Yes Review of Systems - Review of Systems Constitutional: Chills, Fever EENT: No symptoms reported, Throat pain Cardiovascular: No symptoms reported Respiratory: No symptoms reported Gastrointestinal: No symptoms reported Genitourinary: No symptoms reported Female Genitourinary: No symptoms reported Musculoskeletal: No symptoms reported Skin: No symptoms reported Hematologic/Lymphatic: No symptoms reported Neurological/Psychological: Headaches -: Yes All other systems reviewed and negative Physical Exam - Vital signs Vitals: Temp Pulse Resp BP Pulse Ox 100.1 F 110 H 18 122/74 98 10/09/17 09:38 10/09/17 09:38 10/09/17 09:38 10/09/17 09:38 10/09/17 09:38 Interpretation: Normal - General General appearance: Appears well, Alert - HEENT Head: Normocephalic, Atraumatic Eyes: Normal Pupils: PERRL Ears: Normal External canal: Normal Tympanic membrane: Normal Nasal: Normal Mouth/Lips: Normal Mucous membranes: Normal Pharynx: Erythema, Exudate, Tonsillar hypertrophy Neck: Anterior cervical chain - Respiratory Respiratory status: No respiratory distress Chest status: Nontender Breath sounds: Normal Chest palpation: Normal - Cardiovascular Rhythm: Regular Heart sounds: Normal auscultation Murmur: No - Abdominal Inspection: Normal Distension: No distension Bowel sounds: Normal Tenderness: Nontender Organomegaly: No organomegaly - Back Back: Normal, Nontender - Extremities General upper extremity: Normal inspection, Nontender, Normal color, Normal ROM , Normal temperature General lower extremity: Normal inspection, Nontender, Normal color, Normal ROM , Normal temperature, Normal weight bearing. No: Jinny's sign - Neurological Neuro grossly intact: Yes Cognition: Normal Orientation: AAOx4 [place] Coma Scale Eye Opening: Spontaneous Cathy Coma Scale Verbal: Oriented [place] Coma Scale Motor: Obeys Commands [place] Coma Scale Total: 15 Speech: Normal Motor strength normal: LUE, RUE, LLE, RLE Sensory: Normal - Psychological Associated symptoms: Normal affect, Normal mood - Skin Skin Temperature: Warm Skin Moisture: Dry Skin Color: Normal Course - Re-evaluation Re-evalutation: 10/09/17 11:19 Patient was treated with azithromycin 500 mg and Decadron 8 mg for her swollen painful tonsils. She was discharged home with prescription for azithromycin. - Vital Signs Vital signs: Temp Pulse Resp BP Pulse Ox 100.1 F 110 H 18 122/74 98 10/09/17 09:38 10/09/17 09:38 10/09/17 09:38 10/09/17 09:38 10/09/17 09:38 Discharge - Discharge Clinical Impression: Strep pharyngitis Condition: Stable Disposition: HOME, SELF-CARE Additional Instructions: STREP THROAT: Your sore throat is due to the streptococcus germ (strep throat). Strep throat usually makes you feel quite ill with fever and aches, headache, swollen sore throat, and tender bumps under the angles of the jaw. Strep throat requires antibiotic treatment. Although the sore throat may go away by itself, complications such as rheumatic fever, kidney disease, or throat abscess can occur. We usually prescribe antibiotics by mouth. Be sure to take the medicine until it's gone. If you stop early, the strep may come back. If you are vomiting, are severely ill, or can't remember to take pills, we can give you an antibiotic shot. Take acetaminophen or ibuprofen for pain and fever. Sip frequent clear liquids, or use popsicles or ice chips. Anesthetic sprays or lozenges may help. Make sure the air in the room is not too dry. Avoid using decongestants or antihistamines. Call the doctor if there is no improvement in three days, or if you have difficulty breathing, increasing throat pain, high fever, rash, or frequent vomiting. Azithromycin Azithromycin (Zithromax) is a broad spectrum antibiotic in the same class as erythromycin. It can treat a variety of bacterial infections, but is most frequently used for respiratory infections. Azithromycin is extremely long-lasting. It accumulates in body tissues and continues to kill bacteria for many days. In order to improve absorption, Azithromycin should be taken at least one hour before or two hours after a meal. It does not have the same strong tendency to upset the stomach as erythromycin and is usually very well tolerated. Patients who have had a rash or other true allergic reactions to erythromycin should not take this medication. Call if you develop gastrointestinal distress, severe diarrhea, rash, hives, itching, or shortness of breath. STEROID MEDICATION: You have been given a medicine of the cortisone/steroid class. This medication is used to control inflammation or allergy. It is usually only given for a short period of time, until the acute process subsides. There are usually no side effects from short-term use of cortisone-like medications. Some persons feel an increased sense of well-being and are not sleepy at bedtime. Long-term use of cortisone medications is best avoided, unless required for a severe condition. If your condition does not remit, or relapses after the course of corticosteroid medication, you should consult your physician. FOLLOW-UP CARE: If you have been referred to a physician for follow-up care, call the physician s office for an appointment as you were instructed or within the next two days. If you experience worsening or a significant change in your symptoms, notify the physician immediately or return to the Emergency Department at any time for re-evaluation. Prescriptions: Azithromycin [Zithromax 250 mg Tablet] 250 mg PO ASDIR PRN #6 tablet PRN Reason: Referrals: CIARA HALEY MD [Primary Care Provider] - Follow up as needed
[2017-10-09] MEDS ORDERED: DEXAMETHASONE 4 MG TABLET PO ONE (11:07)
[2017-10-09] MEDS ORDERED: AZITHROMYCIN 250 MG TABLET PO ONE (11:17)
== END 2017-10-09 11:38 | disposition home or self-care (01) ==
LOC: ER 09:36
DX: J02.0 Streptococcal pharyngitis (principal); R50.9 Fever, unspecified; Z88.0 Allergy status to penicillin; Z91.013 Allergy to seafood
CPT/HCPCS: 99283; 87880; Q0144; J3490

== ENCOUNTER 2017-11-07 23:19 | Emergency (ER) | payer MEDICAID ==
[2017-11-08 00:46] LABS: APPEARANCE,URINE CLEAR; BILIRUBIN,URINE NEGATIVE (NEGATIVE); GLUCOSE, URINE NEGATIVE (NEGATIVE); KETONES,URINE NEGATIVE (NEGATIVE); LEUKOCYTE ESTERASE,URINE NEGATIVE (NEGATIVE); NITRITE,URINE NEGATIVE (NEGATIVE); PROTEIN,URINE NEGATIVE (NEGATIVE); URINE SPECIFIC GRAVITY 1.002; UROBILINOGEN,URINE NEGATIVE mg/dL (<2.0)
--- NOTE | 2017-11-08 01:29 | ER Document Report ---
ED General Pain - General Chief Complaint: Back Pain Stated Complaint: BACK PAIN Time Seen by Provider: 11/08/17 01:22 Mode of Arrival: Ambulatory Information source: Patient Notes: 37 yo female pt of Dr. Infante c/o low back pain after leaning forward and vacuuming yesterday. Also worried that she has UTI becasuse she has to lean forward and push the urine out. Had gone to the office friday but does not know the results of the lab tests. No fever, vomiting. Mild suprapubic discomfort for a while. 6 month old. TRAVEL OUTSIDE OF THE [place] IN LAST 30 DAYS: No - Related Data Allergies/Adverse Reactions: amoxicillin [Amoxicillin] Allergy (Intermediate, Verified 10/09/17 09:41) Hives Penicillins Allergy (Intermediate, Verified 10/09/17 09:41) Hives black pepper Allergy (Unknown, Uncoded 05/09/17 08:04) nuts Allergy (Unknown, Uncoded 05/09/17 08:04) seafood Allergy (Unknown, Uncoded 05/09/17 08:04) sesame seeds Allergy (Unknown, Uncoded 05/09/17 08:04) Past Medical History - General Information source: Patient - Social History Smoking Status: Never Smoker Frequency of alcohol use: None Drug Abuse: None Lives with: Family Family History: Arthritis, CAD, COPD, CVA, DM, Hyperlipidemia, Hypertension, Malignancy Renal/ Medical History: Reports: Hx Ectopic . Denies: Hx Peritoneal Dialysis GI Medical History: Reports: Hx Gastroesophageal Reflux Disease Past Surgical History: Reports: Hx Gynecologic Surgery - surgery for ectopic , tube saved, Other - Retained placenta after childbirth was removed - Immunizations Hx Diphtheria, Pertussis, Tetanus Vaccination: Yes Review of Systems - Review of Systems Constitutional: No symptoms reported EENT: No symptoms reported Cardiovascular: No symptoms reported Respiratory: No symptoms reported Gastrointestinal: No symptoms reported Genitourinary: See HPI Female Genitourinary: No symptoms reported Musculoskeletal: See HPI Skin: No symptoms reported Hematologic/Lymphatic: No symptoms reported Neurological/Psychological: No symptoms reported Physical Exam - Vital signs Vitals: Temp Pulse Resp BP Pulse Ox 97.8 F 60 14 119/76 97 11/07/17 23:52 11/07/17 23:52 11/07/17 23:52 11/07/17 23:52 11/07/17 23:52 Interpretation: Normal - General General appearance: Appears well, Alert In distress: None - HEENT Head: Normocephalic, Atraumatic Eyes: Normal Pupils: PERRL Mucous membranes: Normal Pharynx: Normal Neck: Supple. No: Lymphadenopathy - Respiratory Respiratory status: No respiratory distress Chest status: Nontender Breath sounds: Normal Chest palpation: Normal - Cardiovascular Rhythm: Regular Heart sounds: Normal auscultation Murmur: No - Abdominal Inspection: Normal Distension: No distension Bowel sounds: Normal Tenderness: Nontender. No: Tender Organomegaly: No organomegaly - Back Back: Normal, Nontender. No: CVA tenderness, Vertebra tenderness Notes: mild tender over both SI joint areas. - Extremities General upper extremity: Normal inspection, Nontender, Normal color, Normal ROM , Normal temperature General lower extremity: Normal inspection, Nontender, Normal color, Normal ROM , Normal temperature, Normal weight bearing. No: Jinny's sign - Neurological Neuro grossly intact: Yes Cognition: Normal Orientation: AAOx4 [place] Coma Scale Eye Opening: Spontaneous [place] Coma Scale Verbal: Oriented [place] Coma Scale Motor: Obeys Commands [place] Coma Scale Total: 15 Speech: Normal Motor strength normal: LUE, RUE, LLE, RLE Sensory: Normal - Psychological Associated symptoms: Normal affect, Normal mood - Skin Skin Temperature: Warm Skin Moisture: Dry Skin Color: Normal Skin irregularity: negative: Rash Course - Vital Signs Vital signs: Temp Pulse Resp BP Pulse Ox 97.8 F 68 18 134/74 H 100 11/07/17 23:52 11/08/17 01:58 11/08/17 01:58 11/08/17 01:58 11/08/17 01:58 Discharge - Discharge Clinical Impression: Low back strain Qualifiers: Encounter type: initial encounter Qualified Code(s): S39.012A - Strain of muscle, fascia and tendon of lower back, initial encounter Condition: Good Disposition: HOME, SELF-CARE Instructions: Low Back Pain ([facility]), Muscle Strain ([facility]), Warm Packs ([facility]) Additional Instructions: Warm compress Tylenol for discomfort Return to the emergency room any concerns Copy of lab were given to you Referrals: MALIA INFANTE MD [Primary Care Provider] - Follow up as needed
[2017-11-08 01:59] VITALS: BP 134/74
== END 2017-11-08 02:00 | disposition home or self-care (01) ==
LOC: ER 23:19
DX: S39.012A Strain of muscle, fascia and tendon of lower back, initial encounter (principal); X58.XXXA Exposure to other specified factors, initial encounter; Z88.0 Allergy status to penicillin; Z91.018 Allergy to other foods; Z91.013 Allergy to seafood
CPT/HCPCS: 81001; 81025; 99283

== ENCOUNTER → 2020-09-09 | Outpatient (CLI) | payer SELFPAY ==
--- NOTE | 2020-09-09 14:12 | ER RDC ASSESSMENT REPORT ---
Intake - In the Last 14 days Have you traveled outside [place]?: No Have you been in close contact with someone CONFIRMED: No Worked in Healthcare?: No - Symptoms Subjective Fever(Calvin feverish): Yes Chills: No Muscule Aches: Yes Runny Nose: No Sore Throat: No Cough (New or worsening chronic cough): Yes Shortness of breath: No Nausea or Vomiting: No Headache: No Abdominal Pain: No Diarrhea(3 or more loose stools in last 24 hours): No - Do you have any of the following Chronic lung disease: Asthma or emphysema or COPD: No Cystic Fibrosis: No Diabetes: No High Blood Pressure: No Cardiovascular Disease: No Chronic Kidney Disease: No Chronic Liver Disease: No Chronic blood disorder like Sickle Cell Disease: No Weak immune system due to disease or medication: No Neurologic condition that limits movement: No Developmental delay - Moderate to Severe: No Recent (within past 2 weeks) or current : No Morbid Obesity (>100 pounds over ideal weight): No - Objective Temperature: 97.9 F Pulse Rate: 81 Respiratory Rate: 18 Blood Pressure: 133/83 O2 Sat by Pulse Oximetry: 98 Objective: Patient is a well-appearing 40-year-old female, who presents today for COVID-19 screening. Disposition: Home; Selfcare General - General Stated Complaint: Upper respiratory symptoms Mode of Arrival: Ambulatory Information source: Patient Notes: The patient was evaluated during the global COVID-19 pandemic. That diagnosis was suspected/considered upon initial presentation. Their evaluation, treatment, and testing was consistent with current guidelines for patients who present with complaints or symptoms that may be related to COVID-19. - HPI Patient complains to provider of: Upper respiratory symptoms Onset: Other - 2 days Onset/Duration: Constant, Persistent, Worse Quality of pain: Achy Severity: Mild Pain Level: 2 Context: Generalized body aches Associated symptoms: Body/muscle aches, Chills, Productive cough, Fever Exacerbated by: Denies Relieved by: Denies Similar symptoms previously: No Recently seen / treated by doctor: No - Related Data Allergies/Adverse Reactions: amoxicillin [Amoxicillin] Allergy (Intermediate, Verified 10/09/17 09:41) Hives Penicillins Allergy (Intermediate, Verified 10/09/17 09:41) Hives black pepper Allergy (Unknown, Uncoded 05/09/17 08:04) nuts Allergy (Unknown, Uncoded 05/09/17 08:04) seafood Allergy (Unknown, Uncoded 05/09/17 08:04) sesame seeds Allergy (Unknown, Uncoded 05/09/17 08:04) Past Medical History - Social History Smoking Status: Former Smoker Cigarette use (# per day): No - Quit smoking 18 years ago Chew tobacco use (# tins/day): No Smoking Education Provided: Yes Frequency of alcohol use: Occasional Drug Abuse: None 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 Denies: Hx Peritoneal Dialysis GI Medical History: Reports: Hx Gastroesophageal Reflux Disease Past Surgical History: Reports: Hx Gynecologic Surgery - surgery for ectopic , tube saved, Other - Retained placenta after childbirth was removed Physical Exam - General General appearance: Appears well In distress: None Notes: PHYSICAL EXAMINATION: GENERAL: Well-appearing and in no acute distress. HEAD: Atraumatic, normocephalic. EYES: sclera anicteric, conjunctiva are normal. ENT: nares patent. Moist mucous membranes. NECK: Normal range of motion, supple without lymphadenopathy. LUNGS: CTAB and equal. No wheezes rales or rhonchi. HEART: Regular rate and rhythm without murmurs. ABDOMEN: Soft, nontender, normal bowel sounds, no guarding. EXTREMITIES: Normal range of motion, no pitting edema. No cyanosis. BACK: No midline or CVA tenderness. NEUROLOGICAL: Cranial nerves grossly intact. Normal speech. Normal gait. PSYCH: Normal mood, normal affect. SKIN: Warm, Dry, normal color and turgor, no obvious lesions or rash noted. Diagnostic Results Laboratory Results: Patient advised at this time they are considered a Person Under Investigation (PUI) for the COVID-19 Coronavirus. They have been made aware it is currently taking 5-7 days to receive their results, and The [facility] Department will call to advise them of a POSITIVE result, and an [facility] forensics team director will call to advise of a NEGATIVE result. Patient Education/Counseling Counseling/Education: Patient presents with upper respiratory symptoms worrisome for possible COVID- 19. Patient does not have symptoms worrisome as an emergency such as difficulty breathing, shortness of breath, chest pain, pressure, confusion or cyanosis. Patient appears suitable for discharge. Patient's vital signs are stable and patient is nontoxic in appearance. Good return precautions have been discussed with patient, patient verbalized understanding and is agreeable with discharge plan of care at this time. Patient provided COVID-19 discharge instructions to include: As a person under investigation for COVID-19, the [facility] of Health and Human Services, division of public health advises you to adhere to the following guidance until your test results are reported to you. If your test result is positive, you will receive additional information from your provider and your local health department at that time. Remain at home until you are cleared by the health provider or public health authorities. Keep a log of visitors to your home, notify any visitors to your home of your isolation status. If you plan to move to a new address or leave the county, notify the local health department in your County. Call your doctor or seek care if you have an urgent medical need. Before seeking medical care, call ahead to get instructions from the provider before arriving at the medical office clinic or hospital. Notify them that you are being tested for the virus that causes COVID-19 so that arrangements can be made, as necessary, to prevent transmission to others in the healthcare setting. Next, notify the local health department in your county. If a medical emergency arises and you need to call 911, inform dispatch and the first responders that you are being tested for the virus that causes COVID-19. Next, notify the local health department in your county. Patient provided education on smoking cessation and the harmful effects of smoking, especially in the presence of Co-morbid conditions such as Hypertension, Diabetes, and/or other chronic illnesses. Patient verbalized understanding of smoking cessation education, and the increased health benefits of quitting. Guidance for worsening S/SX: For worsening symptoms, patient has been advised to contact their Primary Care Provider, or go to the nearest Emergency Department. [facility] Discharge - Discharge Clinical Impression: [id number] URI (upper respiratory infection) Qualifiers: URI type: unspecified URI Qualified Code(s): J06.9 - Acute upper respiratory infection, unspecified Condition: Stable Disposition: Home; Selfcare
[2020-09-09 14:17] VITALS: BP 133/83
== END ==
LOC: RDC 12:26
PROVIDERS: ATTEND Nurse Practitioner Family
DX: U07.1 COVID-19 (principal)
CPT/HCPCS: 87635; 99201; 99211; C9803